=== PATIENT | male | born 1965 | race Caucasian/White ===

== ENCOUNTER 2017-05-26 07:13 | Day surgery (SDC) | payer BC ==
[2017-05-26] MEDS ORDERED: LIDOCAINE 2% MDV (20MG/ML) 20ML VIAL IV ONE (07:14)
[2017-05-26] MEDS ORDERED: PROPOFOL 10 MG/ML VIAL IV ONE (07:14)
[2017-05-26 08:20] LABS: ALB/GLOB RATIO 1.5 (1.1-1.8); ALBUMIN 4.3 g/dL (4.0-5.0); ALKALINE PHOSPHATASE 73 U/L (40-129); ALT/SGPT 35 U/L (<41); AST/SGOT 21 U/L (10.0-50.0); BLOOD UREA NITROGEN 10 mg/dL (6-20); CHOLESTEROL 170 mg/dL (<200); CREATININE 0.8 mg/dL (0.7-1.2); EST GLOMERULAR FILTRATION RATE > 60 mL/min; GLUCOSE,RANDOM 104 mg/dL (74-109); HDL CHOLESTEROL 44 mg/dL (40-60); TOTAL PROTEIN 7.1 g/dL (6.6-8.7); TRIGLYCERIDES 133 mg/dL (<150); VLDL CHOLESTEROL 26 mg/dL (10.00-40.00)
--- NOTE | 2017-05-29 08:10 | Operative Note ---
DATE OF SURGERY: 05/26/2017 SURGEON: Lee Yu MD OPERATION: COLONOSCOPY. INDICATIONS: This is a 51-year-old male with family history of colon polyps who presented for screening colonoscopy. POSTOPERATIVE DIAGNOSES: 1. Left-sided colonic diverticulosis. 2. Poor bowel preparation. ANESTHESIA: Sedation is per Anesthesia. Pulse oximetry was monitored throughout the procedure to maintain O2 saturation of 90% or greater. Supplemental oxygen was administered via nasal cannula. Cardiac and vital signs were monitored throughout the duration of the procedure, and they were stable. The procedure of colonoscopy and risks and alternatives of the procedure, including the risk of bleeding and perforation, among others, were explained to the patient who voiced understanding and agreed to have the procedure done. Physical examination was performed, and the patient was found stable for sedation. PROCEDURE: The patient was placed in the left lateral position. Sedation was initiated. A digital rectal exam was performed and showed some mild external hemorrhoids with no palpable rectal masses. An Olympus PCF-180AL colonoscope was then inserted into the rectum under direct visualization. It was advanced to the cecum without difficulty. The ileocecal valve and appendiceal orifice were identified and photographed. The colonic mucosa was carefully examined upon introduction of the colonoscope. There were no other lesions noted. There were scattered diverticula noted in the sigmoid and descending colon. The bowel preparation was poor with solid stool debris in the sigmoid, transverse, and ascending colon. The colonoscope was then withdrawn while carefully examining the colonic mucosal surfaces. No other lesions were noted. In the rectum, retroflexion was performed and grade 1 internal hemorrhoids were noted. The colonoscope was then withdrawn and the procedure was terminated. The patient tolerated the procedure well without any immediate complications. He remained with stable vital signs and was transferred to the recovery room. RECOMMENDATIONS: 1. The patient should be on a high-fiber diet. 2. The patient is to have a repeat colonoscopy in 5 years because of the suboptimal bowel preparation. Thank you for allowing me to participate in the care of your patient. CC: Dr. Chucky ROSA
== END 2017-05-26 09:22 | disposition home or self-care (01) ==
LOC: HOP 07:13
PROVIDERS: ATTEND Internal Medicine Gastroenterology
DX: Z12.11 Encounter for screening for malignant neoplasm of colon (principal); Z83.71 Family history of colonic polyps; K57.30 Diverticulosis of large intestine without perforation or abscess without bleeding; K64.4 Residual hemorrhoidal skin tags
CPT/HCPCS: 00810; G0105; 80053; 80061

== ENCOUNTER 2017-08-21 09:41 | Day surgery (SDC) | payer BC ==
[~2017-08-21 09:41] MED LIST: ACETAMINOPHEN 1,000 MG/100 ML BTL IV ONE
[2017-08-21] MEDS ORDERED: PROPOFOL 10 MG/ML VIAL IV ONE (09:42)
[2017-08-21] MEDS ORDERED: BUPIVACAINE 0.25% W/EPI MPF 30ML VIAL IVP ONE (09:42)
[2017-08-21] MEDS ORDERED: MIDAZOLAM HCL 2MG/2ML VIAL IV ONE (09:42)
[2017-08-21] MEDS ORDERED: LIDOCAINE 2% MDV (20MG/ML) 20ML VIAL IV ONE (09:42)
[2017-08-21] MEDS ORDERED: FENTANYL PF 100MCG/2ML VIAL IV ONE (09:42)
--- NOTE | 2017-08-22 12:20 | Operative Note ---
DATE OF SURGERY: 08/21/2017 Surgeon: Gil Poole DO Referring physician: Chucky Nance M.D. PREOPERATIVE DIAGNOSIS: Chest mass. POSTOPERATIVE DIAGNOSIS: Wide excision of chest mass. Anesthesia: Local IV sedation. Indication: The patient is a 51-year-old male who presented to the clinic with a mass on his chest. This had the characteristics of a probable sebaceous cyst. We did discuss excision risks, benefits, and alternatives. The risks include bleeding, infection, recurrence, and he understood this fully. The consent was signed, questions answered. PROCEDURE: He was taken to the operating room and placed in the supine position. Local IV sedation was given per the Department of Anesthesia. The patient's chest was prepped and draped in sterile fashion. At this time, the area around the mass was anesthetized with a total of 5 mL of 0.25% Sensorcaine with epinephrine. A wide excision was done, incorporating the mass. This measured about 3 to 4 cm down to the subcutaneous. This was then fully excised. The wound is then closed with 3-0 Vicryl and 3-0 nylon. He did tolerate the procedure well. Final pathology pending. [facility]
== END 2017-08-21 11:55 | disposition home or self-care (01) ==
LOC: SUR 09:41
PROVIDERS: ATTEND Surgery
DX: L72.0 Epidermal cyst (principal)
CPT/HCPCS: 11402; 12031; 00400; J3010